=== PATIENT | female | born 1985 | race Caucasian/White ===

== ENCOUNTER 2021-08-10 20:42 | Emergency (ER) | payer OTHER ==
[2021-08-10 20:50] VITALS: BP 107/75; PULSE 65; TEMP 98; BMI 27.8
[2021-08-10 23:04] LABS: EPI CELLS 26 /uL (0-25.1); HYALINE CASTS 1 /uL (0-3.1); URINE APPEARANCE CLOUDY; URINE BACTERIA 335 /uL (0-1359); URINE BILIRUBIN NEGATIVE (NEGATIVE); URINE COLOR YELLOW; URINE GLUCOSE (UA) NEGATIVE (NEGATIVE); URINE KETONE NEGATIVE (NEGATIVE); URINE LEUK ESTERASE 3+ (NEGATIVE); URINE NITRITE NEGATIVE (NEGATIVE); URINE PROTEIN NEGATIVE (NEGATIVE); URINE RBC 20 /uL (0-23.9); URINE UROBILINOGEN 0.2 mg/dL (0.2-1.0); URINE WBC 1166 /uL (0-25.8)
[2021-08-10] MEDS ORDERED: CEPHALEXIN MONOHYDRATE 500 MG CAPSULE (UD) PO ONE (23:10)
[2021-08-10 23:15] LABS: HCG,QUALITATIVE URINE NEGATIVE
[2021-08-10] MEDS ORDERED: CEPHALEXIN MONOHYDRATE 500 MG CAPSULE (UD) ONE (23:24)
== END 2021-08-10 23:29 | disposition home or self-care (01) ==
LOC: JERFT 20:42
DX: N30.90 Cystitis, unspecified without hematuria (principal)
CPT/HCPCS: 81003; 84703; 87086; 87186; 99283-25

== ENCOUNTER 2022-04-05 09:28 | Emergency (ER) | payer OTHER ==
[2022-04-05 09:55] VITALS: BP 113/74; PULSE 73; RESP 18; TEMP 98.2; BMI 31.0
[2022-04-05 11:58] LABS: EPI CELLS 32 /uL (0-25.1); HYALINE CASTS 1 /uL (0-3.1); PH,URINE 6.5 (5.0-8.0); URINE APPEARANCE CLEAR; URINE BILIRUBIN NEGATIVE (NEGATIVE); URINE COLOR DK YELLOW; URINE GLUCOSE (UA) NEGATIVE (NEGATIVE); URINE KETONE NEGATIVE (NEGATIVE); URINE LEUK ESTERASE TRACE (NEGATIVE); URINE NITRITE POSITIVE (NEGATIVE); URINE PROTEIN NEGATIVE (NEGATIVE); URINE RBC 1 /uL (0-23.9); URINE UROBILINOGEN 0.2 mg/dL (0.2-1.0); URINE WBC 24 /uL (0-25.8)
[2022-04-05 12:12] LABS: URINE BACTERIA 201.5 /uL (0-1359)
== END 2022-04-05 12:24 | disposition home or self-care (01) ==
LOC: JERFT 09:28
DX: N30.00 Acute cystitis without hematuria (principal)
CPT/HCPCS: 81003; 87086; 99283-25

== ENCOUNTER 2022-11-16 06:15 | Emergency (ER) | payer OTHER ==
[2022-11-16 06:39] VITALS: BP 107/70; PULSE 78; RESP 18; TEMP 98.6; BMI 28.3
[2022-11-16 07:11] LABS: EPI CELLS 8 /uL (0-25.1); HYALINE CASTS 1 /uL (0-3.1); URINE APPEARANCE CLEAR; URINE BACTERIA 129 /uL (0-1359); URINE BILIRUBIN NEGATIVE (NEGATIVE); URINE COLOR YELLOW; URINE GLUCOSE (UA) NEGATIVE (NEGATIVE); URINE KETONE NEGATIVE (NEGATIVE); URINE LEUK ESTERASE 3+ (NEGATIVE); URINE NITRITE NEGATIVE (NEGATIVE); URINE PROTEIN TRACE (NEGATIVE); URINE RBC 16 /uL (0-23.9); URINE UROBILINOGEN 0.2 mg/dL (0.2-1.0); URINE WBC 663 /uL (0-25.8)
[2022-11-16] MEDS ORDERED: CEPHALEXIN MONOHYDRATE 500 MG CAPSULE (UD) PO ONE (07:59)
[2022-11-16] MEDS ORDERED: CEPHALEXIN MONOHYDRATE 500 MG CAPSULE (UD) ONE (08:01)
[2022-11-16 08:06] LABS: HCG,QUALITATIVE URINE Negative
== END 2022-11-16 08:31 | disposition home or self-care (01) ==
LOC: JER 06:15
DX: R30.0 Dysuria (principal); R31.9 Hematuria, unspecified; R10.32 Left lower quadrant pain; N39.0 Urinary tract infection, site not specified
CPT/HCPCS: 81003; 84703; 87086; 99283-25